=== PATIENT | female | born 1980 | race American Indian/Alaskan Native ===

== ENCOUNTER 2019-08-07 13:35 | Emergency (ER) | payer OTHER ==
[2019-08-07 14:00] VITALS: BP 134/103
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
--- NOTE | 2019-08-07 14:39 | XRay Report ---
CERVICAL SPINE, 3 VIEWS INDICATION: neck pain. COMPARISON: None. IMPRESSION: Normal alignment. Mild degenerative disc disease with anterior spurring is identified a t C5-6. The remaining levels of the cervical spine are within normal limits. No acute osseous or sof t tissue abnormality. Signer Name: Krystian Bingham Jr, MD Signed: 08/07/2019 2:34 PM Workstation Name: [id number]
[2019-08-07] MEDS ORDERED: HYDROcodone/ACETAMINOPHEN 5-325 MG TAB PO ONE (15:00)
[2019-08-07] MEDS ORDERED: IBUPROFEN 800 MG TAB PO ONE (15:00)
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
== END 2019-08-07 15:53 | disposition home or self-care (01) ==
LOC: ED 13:35
DX: S16.1XXA Strain of muscle, fascia and tendon at neck level, initial encounter (principal); S09.90XA Unspecified injury of head, initial encounter; F17.200 Nicotine dependence, unspecified, uncomplicated; Z79.899 Other long term (current) drug therapy; V49.59XA Passenger injured in collision with other motor vehicles in traffic accident, initial encounter; Y93.89 Activity, other specified; Y92.410 Unspecified street and highway as the place of occurrence of the external cause; Y99.8 Other external cause status
CPT/HCPCS: 72040